=== PATIENT | female | born 1980 | race Caucasian/White ===

== ENCOUNTER → 2018-01-06 | Outpatient (CLI) | payer OTHER, MEDICAID | LOC: FIMAGING 13:37 | PROVIDERS: ATTEND Family Medicine | DX: O09.522 Supervision of elderly multigravida, second trimester (principal); O24.312 Unspecified pre-existing diabetes mellitus in pregnancy, second trimester; Z3A.11 11 weeks gestation of pregnancy ==

== ENCOUNTER → 2018-02-10 | Outpatient (CLI) | payer OTHER, MEDICAID | LOC: FIMAGING 08:53 | PROVIDERS: ATTEND Family Medicine | DX: O09.522 Supervision of elderly multigravida, second trimester (principal); O24.312 Unspecified pre-existing diabetes mellitus in pregnancy, second trimester; Z3A.23 23 weeks gestation of pregnancy ==

== ENCOUNTER → 2018-03-31 | Outpatient (CLI) | payer OTHER, MEDICAID | LOC: FIMAGING 14:08 | PROVIDERS: ATTEND Family Medicine | DX: O09.523 Supervision of elderly multigravida, third trimester (principal); O24.913 Unspecified diabetes mellitus in pregnancy, third trimester; Z3A.30 30 weeks gestation of pregnancy ==

== ENCOUNTER → 2018-04-14 | Outpatient (CLI) | payer OTHER, MEDICAID | LOC: FIMAGING 13:38 | PROVIDERS: ATTEND Family Medicine | DX: O09.522 Supervision of elderly multigravida, second trimester (principal); O24.113 Pre-existing type 2 diabetes mellitus, in pregnancy, third trimester; O09.293 Supervision of pregnancy with other poor reproductive or obstetric history, third trimester; Z3A.32 32 weeks gestation of pregnancy ==

== ENCOUNTER → 2018-04-28 | Outpatient (CLI) | payer OTHER, MEDICAID | LOC: FIMAGING 13:44 | PROVIDERS: ATTEND Family Medicine | DX: O36.5930 Maternal care for other known or suspected poor fetal growth, third trimester, not applicable or unspecified (principal); O24.113 Pre-existing type 2 diabetes mellitus, in pregnancy, third trimester; O09.523 Supervision of elderly multigravida, third trimester; O09.293 Supervision of pregnancy with other poor reproductive or obstetric history, third trimester; E11.9 Type 2 diabetes mellitus without complications; Z79.84 Long term (current) use of oral hypoglycemic drugs; Z3A.34 34 weeks gestation of pregnancy ==

== ENCOUNTER → 2018-05-12 | Outpatient (CLI) | payer OTHER, MEDICAID | LOC: FIMAGING 10:54 | PROVIDERS: ATTEND Family Medicine | DX: O36.5930 Maternal care for other known or suspected poor fetal growth, third trimester, not applicable or unspecified (principal); O24.113 Pre-existing type 2 diabetes mellitus, in pregnancy, third trimester; O09.523 Supervision of elderly multigravida, third trimester; E11.9 Type 2 diabetes mellitus without complications; Z79.84 Long term (current) use of oral hypoglycemic drugs; Z87.59 Personal history of other complications of pregnancy, childbirth and the puerperium; Z3A.36 36 weeks gestation of pregnancy ==